=== PATIENT | male | born 1995 | race Caucasian/White ===

== ENCOUNTER 2024-04-11 12:00 | Outpatient (RCR) | payer MEDICAID, SELFPAY ==
[2024-04-02 12:12] VITALS: BP 90/60; PULSE 88; TEMP 36.9
[2024-04-02 12:14] VITALS: BMI 35.1
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
--- NOTE | 2024-04-03 11:02 | HO.PHP ---
At roughly 10:45 am designer writer checked in with Arely after pt stated in group she had spent the night calling warm lines and respites, stated she felt 'ready' for that level of care last night. Pt expressed feeling hopeless about her treatment options and reports thoughts of SI with a plan to do it before I run out of money . Pt stated in group she is working on applying for disability which is why she is here at [facility] and wants to try to complete the program so she can build her disability case, but feels unsure if this program is right for her right now. Pt also stated in group that she had a terrible experience inpatient in [place] but was open to it if necessary and if symptoms worsened. After group designer writer offered to walk with her to the ED for a crisis evaluation, pt stated she is familiar with crisis and felt she currently did not need that level of care. Pt reports SI with a plan, but denies intent to act on it. Pt reported her mental health symptoms are chronic so agreed to report to [facility] staff if they increase. Pt is aware she is scheduled to meet with [facility] med provider at 3:30 pm today and continue attending groups today. Pt affect was depressed but pt smiled appreciatively for the staff support and concern. Pt forthcoming when prompted, oriented, alert and cooperative during meeting.
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
--- NOTE | 2024-04-08 08:28 | HO.PHP ---
PHP admin, joceline, informed the team that Arely will not be in attendance to program because she is not feeling well. No safety concerns were presented.
--- NOTE | 2024-04-09 15:24 | HO.PHP ---
Arely was provided with her new OP appts with [facility], her appts are as follows: 04/22/2024 11:00 AM - 12:00 PM [facility] Adult Comprehensive Assessment- In- Office Prog: Outpatient Site: [address] [id number] Staff: Xi Wiley 05/09/2024 11:00 AM - 12:00 PM Psychiatric E/M New - Telehealth v2 Prog: Psychiatric Services Site: [facility] Staff: VIOLETTA ARDON
--- NOTE | 2024-04-10 12:24 | HO.PHP ---
Arely left group after checking in at roughly 12:00, pt did not return. Jr. Systems Administrator checked the halls for pt then called her on the phone. Pt answered stated she was on her way home. Said she felt triggered in groups today, could not identify why. Pt stated she opened up 1% in groups today and feels it is not enough but does not want to trigger others. Pt stated she felt she currently needed to be at home, denied suicidal thoughts, denied a plan, stated please do not call crisis I'm not going to kill myself , stated she just needed a break from the groups. Pt stated she did not know what else to do so left and will come in to [facility] and will try again tomorrow . Pt was appreciative to remote mortgage underwriter for the call and support, pt depressed, sad affect. Attempting to use coping skills, supports and boundaries.
--- NOTE | 2024-04-11 12:54 | HO.PHP ---
This story writer met with Arely for a significant amount of time. Arely relayed much of her history living in [place] where her family is, moving up here due to discrimination in [place] against her identity as transgender. Her ex-partner also moved up here and moved on, but she is in the same [place] of friends. Her ton[place] of friends all have their life together they work and are able to manage their mental health challenges. She described a lot of comparison towards them and their goals as she is older. We explored her likes in which she talked about going to school for behavioral neuroscience which she truly enjoyed, but her mental health inhibited this. She talked much of self-hatred, and that she cannot see how her future will get better. This story writer explored ways she could make managable, small changes in her life towards completing her alf goals, and how they may feel unattainable in the moment. However, small steps in the right direction could change this momentum. This individual time appeared receptive in which Arely stated, thanks this was helpful. She was able to return to the group setting for the next group.
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
--- NOTE | 2024-04-12 14:09 | HO.PHP ---
Late entry: This publicity writer spoke with Lakesha with [facility] who informed that she was on the phone with Arely when dispatch was notified and was initiating crisis interventions with the section 12 they received. At that time, Lakesha stated that Arely was willing to go to [facility] voluntarily, and she was pre-accepted to their unit [place] .
== END 2024-04-11 23:59 | disposition home or self-care (01) ==
LOC: HO.PHPA 12:00
PROVIDERS: Visit Provider Psychiatry & Neurology Psychiatry
DX: F33.9 Major depressive disorder, recurrent, unspecified (principal); F64.0 Transsexualism
CPT/HCPCS: 90791; 90853